=== PATIENT | male | born 1930 | race Caucasian/White ===

== ENCOUNTER 2020-01-14 11:34 | Emergency (ER) | payer BC, MEDICARE ==
[~2020-01-14] VITALS: Ht 182.9 cm; Wt 99.8 kg
[2020-01-14] MEDS ORDERED: AMLO5TAB9 PO (11:52)
[2020-01-14] MEDS ORDERED: VALS160T2 PO (11:52)
[2020-01-14] MEDS ORDERED: HYDR12.55 PO (11:52)
[2020-01-14] MEDS ORDERED: GLUC-108 PO (11:52)
[2020-01-14] MEDS ORDERED: MULT-594 PO (11:52)
[2020-01-14] MEDS ORDERED: ASPI81TA31 PO (11:52)
[2020-01-14] MEDS ORDERED: MULT-465 PO (11:52)
[2020-01-14] MEDS ORDERED: CA C1TAB95 PO (11:52)
[2020-01-14] MEDS ORDERED: METF-440 PO (11:52)
--- NOTE | 2020-01-14 11:59 | NUR ---
Dr Lanier at the bedside for MSE.
[2020-01-14] MEDS ORDERED: ACETAMINOPHEN ES 500 MG TABLET ONE (12:28)
[2020-01-14] MEDS: LIDOCAINE HCL 2% 20 ML VIAL TP ONE (12:37)
[2020-01-14] MEDS: ACETAMINOPHEN 325 MG TABLET PO ONE (12:37)
[2020-01-14 13:19] VITALS: BP 144/90
--- NOTE | 2020-01-14 13:19 | NUR ---
Patient discharged to home in stable condition. Written and verbal after care instructions given. Patient verbalizes understanding of instructions. Stressed follow up or return to ER for worsening s/s.
== END 2020-01-14 13:20 | disposition home or self-care (01) ==
LOC: ER 11:34
DX: S01.81XA Laceration without foreign body of other part of head, initial encounter (principal); S81.812A Laceration without foreign body, left lower leg, initial encounter; S61.412A Laceration without foreign body of left hand, initial encounter; W18.30XA Fall on same level, unspecified, initial encounter; Y92.410 Unspecified street and highway as the place of occurrence of the external cause; E11.9 Type 2 diabetes mellitus without complications; Z79.82 Long term (current) use of aspirin; Z79.84 Long term (current) use of oral hypoglycemic drugs
CPT/HCPCS: 12013; 99283; J3490; A4217; A9150